=== PATIENT | male | born 1995 ===

== ENCOUNTER 2017-02-24 22:35 | Inpatient (IN) ==
[2017-02-24] MEDS ORDERED: HYDROmorphone 2 MG/1 ML VIAL IV STA (23:11)
[2017-02-24] MEDS ORDERED: ONDANSETRON 4 MG/2 ML VIAL IV STA (23:11)
[2017-02-24] MEDS ORDERED: SODIUM CHLORIDE 0.9% 1,000 ML IV STA (23:11)
[2017-02-24] MEDS ORDERED: PIPERACILLIN/TAZOBACTAM 3,375 MG in SODIUM CHLORIDE 0.9% 100 ML IV STA (23:11)
[2017-02-24] MEDS ORDERED: PANTOPRAZOLE 40 MG VIAL IV STA (23:11)
[2017-02-25] MEDS ORDERED: PIPERACILLIN/TAZOBACTAM 3,375 MG VIAL IV ONE (00:23)
[2017-02-25] MEDS ORDERED: PANTOPRAZOLE 40 MG VIAL IV ONE (00:23)
[2017-02-25] MEDS ORDERED: ONDANSETRON 4 MG/2 ML VIAL ONE ×2 (00:23→09:52)
[2017-02-25] MEDS ORDERED: HYDROmorphone 2 MG/1 ML VIAL ONE (00:24)
[2017-02-25 00:26] LABS: Basophils # 0.1 10*3/uL (0.0-0.2); Basophils % 0.4 % (0.0-0.8); Eosinophils # 0.1 10*3/uL (0.0-0.87); Eosinophils % 0.6 % (0.00-10.9); Hematocrit 46.3 VOL% (42.0-52.0); Hemoglobin 15.9 GM/DL (14.0-18.0); Immature Granulocytes % 0.4 %; Immature Granulocytes Absolute 0.05 #; Lymphocytes # 1.4 10*3/uL (1.4-4.0); Lymphocytes % 11.7 % (21.2-54.2); Mean Corpuscular HGB Conc 34.3 GM/DL (32-36); Mean Corpuscular Hemoglobin 30 PG (27-34); Mean Platelet Volume 9.3 FL (9.6-12.0); Monocytes # 0.8 10*3/uL (0.11-0.8); Monocytes % 6.4 % (1.7-12.7); Neutrophils # 9.5 10*3/uL (1.4-7.4); Neutrophils % 80.5 % (38.7-73.9); Platelet Count 250 T/CUMM (130-400); Red Blood Count 5.32 MC/CUMM (3.8-5.5); Red Cell Distribution Width 12.5 % (9.3-17.3); White Blood Count 11.8 T/CUMM (4-12)
[2017-02-25 00:47] LABS: Albumin 4.1 G/DL (3.4-5.0); Bilirubin,Total 1.1 MG/DL (0.2-1.0); Calcium 8.8 MG/DL (8.5-10.1); Osmolality,Calculated 268.1 MOS/KG (273-304); Potassium 3.9 MMOL/L (3.5-5.1); Total Protein 8.1 G/DL (6.4-8.3)
[2017-02-25 01:00] LABS: Lactic Acid 1.2 MMOL/L (0.4-2.0)
[2017-02-25] MEDS ORDERED: HYDROmorphone 2 MG/1 ML VIAL IV STA (01:29)
[2017-02-25 02:57] LABS: Apearance,Urine CLEAR (Clear); Bilirubin,Urine Negative (Negative); Blood, Urine Negative (Negative); Glucose,Urine (UA) Negative (Negative); Ketones,Urine 20 mg/dL (Negative); Mucus,Urine Occasional /LPF (Occasional); Nitrite,Urine Negative (Negative); Protein,Urine Negative; RBC,Urine <1 /HPF (0-4); Urine Color Yellow (Yellow); Urine Specific Gravity > 1.060 (1.001-1.035); WBC,Urine <1 /HPF (0-6)
[2017-02-25] MEDS ORDERED: ONDANSETRON 4 MG/2 ML VIAL IV PRN (03:30)
[2017-02-25] MEDS ORDERED: ACETAMINOPHEN 325 MG TABLET PO PRN (03:30)
[2017-02-25] MEDS ORDERED: HYDROmorphone 2 MG/1 ML VIAL IV PRN (03:30)
[2017-02-25] MEDS: metroNIDAZOLE INJ 500 MG in PREMIX 1 EACH IV SCH ×3 (03:59→21:34)
[2017-02-25] MEDS: LACTATED RINGERS 1,000 ML IV SCH ×3 (03:59→21:58)
[2017-02-25] MEDS ORDERED: cefOXitin 2,000 MG in SYRINGE 1 EACH IV ONE (06:30)
[2017-02-25] MEDS ORDERED: BUPIVACAINE 0.25% 50 ML VIAL ONE (07:58)
[2017-02-25] MEDS ORDERED: TISSUE ADHESIVE 1 EACH APPLICATOR TOP ONE (07:58)
[2017-02-25] MEDS: PANTOPRAZOLE 40 MG VIAL IV SCH (08:56)
[2017-02-25] MEDS ORDERED: MIDAZOLAM 2 MG/2 ML VIAL ONE (09:51)
[2017-02-25] MEDS ORDERED: SEVOFLURANE 1 UNIT/15 MINUTE INH ONE (09:51)
[2017-02-25] MEDS ORDERED: PROPOFOL 200 MG/20 ML VIAL IV ONE (09:51)
[2017-02-25] MEDS ORDERED: GLYCOPYRROLATE 0.4 MG/2 ML VIAL ONE (09:52)
[2017-02-25] MEDS ORDERED: fentaNYL 100 MCG/2 ML VIAL ONE (09:52)
[2017-02-25] MEDS ORDERED: DEXAMETHASONE 10 MG/1 ML VIAL ONE (09:52)
[2017-02-25] MEDS ORDERED: LACTATED RINGERS 1,000 ML IV ONE (09:52)
[2017-02-25] MEDS ORDERED: ACETAMINOPHEN 1,000 MG/100 ML VIAL IV ONE (09:52)
[2017-02-25] MEDS ORDERED: ROCURONIUM 100 MG/10 ML VIAL IV ONE (09:52)
[2017-02-25] MEDS ORDERED: KETOROLAC 30 MG/1 ML VIAL ONE (09:52)
[2017-02-25] MEDS: PIPERACILLIN/TAZOBACTAM 3,375 MG in SODIUM CHLORIDE 0.9% 100 ML IV SCH ×2 (13:50→22:42)
[2017-02-25] MEDS: ALUMINUM/MAGNES/SIMETH MAX STR 30 ML UDCUP PO SCH ×3 (13:50→20:39)
[2017-02-26] MEDS: ALUMINUM/MAGNES/SIMETH MAX STR 30 ML UDCUP PO SCH ×6 (00:43→20:59)
[2017-02-26] MEDS: metroNIDAZOLE INJ 500 MG in PREMIX 1 EACH IV SCH ×3 (03:05→20:59)
[2017-02-26 06:15] LABS: Basophils % 0.2 % (0.0-0.8); Hematocrit 38.7 VOL% (42.0-52.0); Immature Granulocytes % 0.9 %; Immature Granulocytes Absolute 0.17 #; Lymphocytes # 0.7 10*3/uL (1.4-4.0); Lymphocytes % 3.9 % (21.2-54.2); Mean Corpuscular HGB Conc 34.6 GM/DL (32-36); Mean Corpuscular Hemoglobin 30 PG (27-34); Mean Platelet Volume 10.3 FL (9.6-12.0); Monocytes # 1.5 10*3/uL (0.11-0.8); Monocytes % 7.9 % (1.7-12.7); Neutrophils # 16.7 10*3/uL (1.4-7.4); Neutrophils % 87.1 % (38.7-73.9); Platelet Count 228 T/CUMM (130-400); Red Blood Count 4.45 MC/CUMM (3.8-5.5); Red Cell Distribution Width 12.4 % (9.3-17.3)
[2017-02-26 06:44] LABS: Hemoglobin 13.4 GM/DL (14.0-18.0); White Blood Count 19.1 T/CUMM (4-12)
[2017-02-26 06:52] LABS: Calcium 8.4 MG/DL (8.5-10.1); Magnesium 2.1 MG/DL (1.8-2.4); Osmolality,Calculated 277.7 MOS/KG (273-304); Potassium 3.9 MMOL/L (3.5-5.1)
[2017-02-26 07:24] LABS: Band Neutrophils 12 % (0-10); Lymphocytes 2 % (20-55); Microcytosis 1+; Platelet Estimate Normal; Segmented Neutrophils 82 % (50-85); Total Cells Counted 100
[2017-02-26] MEDS ORDERED: NON-FORMULARY MEDICATION (Omeprazole [Prilosec] 20 MG) PO SCH (09:00)
[2017-02-26] MEDS: PANTOPRAZOLE 40 MG VIAL IV SCH (11:13)
[2017-02-26] MEDS: PIPERACILLIN/TAZOBACTAM 3,375 MG in SODIUM CHLORIDE 0.9% 100 ML IV SCH ×3 (11:41→22:44)
[2017-02-26] MEDS: LACTATED RINGERS 1,000 ML IV SCH ×2 (12:02→18:32)
[2017-02-26] MEDS: ENOXAPARIN 40 MG/0.4 ML SYRINGE SUBCUT SCH (12:15)
[2017-02-27] MEDS: metroNIDAZOLE INJ 500 MG in PREMIX 1 EACH IV SCH ×3 (03:27→19:52)
[2017-02-27] MEDS: ALUMINUM/MAGNES/SIMETH MAX STR 30 ML UDCUP PO SCH ×6 (03:28→19:51)
[2017-02-27] MEDS: PIPERACILLIN/TAZOBACTAM 3,375 MG in SODIUM CHLORIDE 0.9% 100 ML IV SCH ×3 (04:40→21:17)
[2017-02-27 06:51] LABS: Basophils % 0.1 % (0.0-0.8); Eosinophils % 0.2 % (0.00-10.9); Hematocrit 38.5 VOL% (42.0-52.0); Hemoglobin 13.1 GM/DL (14.0-18.0); Immature Granulocytes % 0.4 %; Immature Granulocytes Absolute 0.06 #; Lymphocytes # 1.2 10*3/uL (1.4-4.0); Lymphocytes % 8.5 % (21.2-54.2); Mean Corpuscular Hemoglobin 30 PG (27-34); Mean Corpuscular Volume 87.7 FL (87-102); Mean Platelet Volume 10.4 FL (9.6-12.0); Monocytes # 1.2 10*3/uL (0.11-0.8); Monocytes % 8.5 % (1.7-12.7); Neutrophils # 11.7 10*3/uL (1.4-7.4); Neutrophils % 82.3 % (38.7-73.9); Platelet Count 280 T/CUMM (130-400); Red Blood Count 4.39 MC/CUMM (3.8-5.5); Red Cell Distribution Width 12.6 % (9.3-17.3); White Blood Count 14.3 T/CUMM (4-12)
[2017-02-27 07:27] LABS: Calcium 8.4 MG/DL (8.5-10.1); Magnesium 2.1 MG/DL (1.8-2.4); Osmolality,Calculated 275.7 MOS/KG (273-304); Potassium 3.9 MMOL/L (3.5-5.1)
[2017-02-27] MEDS: PANTOPRAZOLE 40 MG VIAL IV SCH (10:09)
[2017-02-27] MEDS: ENOXAPARIN 40 MG/0.4 ML SYRINGE SUBCUT SCH (10:09)
[2017-02-28] MEDS: ALUMINUM/MAGNES/SIMETH MAX STR 30 ML UDCUP PO SCH ×5 (01:05→16:07)
[2017-02-28] MEDS: metroNIDAZOLE INJ 500 MG in PREMIX 1 EACH IV SCH ×2 (03:25→12:12)
[2017-02-28] MEDS: PIPERACILLIN/TAZOBACTAM 3,375 MG in SODIUM CHLORIDE 0.9% 100 ML IV SCH ×2 (04:58→15:01)
[2017-02-28] MEDS: ENOXAPARIN 40 MG/0.4 ML SYRINGE SUBCUT SCH (09:07)
[2017-02-28] MEDS: PANTOPRAZOLE 40 MG VIAL IV SCH (09:07)
[2017-02-28 15:24] VITALS: BP 149/77
== END 2017-02-28 17:03 | disposition home or self-care (01) | DRG 340 ==
LOC: N.ED 22:35 → N.EDINP 02-25 01:19 → N.3E 02-25 03:02
PROVIDERS: ADMIT Surgery; ATTEND Surgery